=== PATIENT | female | born 1985 | race Caucasian/White ===

== ENCOUNTER 2018-12-24 15:45 | Emergency (ER) | payer OTHER ==
[~2018-12-24] VITALS: Ht 160 cm; Wt 87.6 kg
[2018-12-24] MEDS ORDERED: birth control patch TOP (16:13)
[2018-12-24 16:42] LABS: BASO % 0.4 % (0.0-1.0); EOS # 0.1 10^3/uL (0.0-0.5); EOS % 1.1 % (0.0-3.0); HEMATOCRIT 38.7 % (36.0-47.0); HEMOGLOBIN 12.9 g/dl (12.0-15.5); LYMPH # 2.3 10^3/uL (1.5-5.0); LYMPH % 31.5 % (24.0-44.0); MEAN CORPUSCULAR HEMOGLOBIN 28.3 pg (27.0-33.0); MEAN CORPUSCULAR HGB CONC 33.3 g/dl (32.0-36.5); MEAN CORPUSCULAR VOLUME 84.9 fl (80.0-96.0); MONO # 0.4 10^3/uL (0.0-0.8); MONO % 5.7 % (0.0-5.0); NEUTROPHILS # 4.4 10^3/uL (1.5-8.5); PLATELET COUNT, AUTOMATED 222 10^3/uL (150-450); RED BLOOD COUNT 4.56 10^6/uL (4.00-5.40); WHITE BLOOD COUNT 7.2 10^3/uL (4.0-10.0)
[2018-12-24 17:03] LABS: ALBUMIN 3.2 GM/DL (3.2-5.2); ALT/SGPT 42 U/L (12-78); BILIRUBIN,DIRECT 0.2 MG/DL (0.0-0.2); BILIRUBIN,TOTAL 0.3 MG/DL (0.2-1.0); BLOOD UREA NITROGEN 11 MG/DL (7-18); CARBON DIOXIDE LEVEL 24 MEQ/L (21-32); CHLORIDE LEVEL 109 MEQ/L (98-107); CREATININE FOR GFR 0.87 MG/DL (0.55-1.30); GLOMERULAR FILTRATION RATE > 60.0 (>60); GLUCOSE, FASTING 112 MG/DL (70-100); LIPASE 129 U/L (73-393); POTASSIUM SERUM 4.1 MEQ/L (3.5-5.1); SODIUM LEVEL 144 MEQ/L (136-145); TOTAL PROTEIN 6.9 GM/DL (6.4-8.2)
[2018-12-24 17:06] LABS: HCG, SERUM QUALITATIVE NEGATIVE (NEGATIVE)
[2018-12-24] MEDS ORDERED: ISOVUE-370 76% 100ML VIAL (Q9967) As Ordered ONE (17:45)
--- NOTE | 2018-12-24 18:47 | REP ---
Left rib series: Five views including PA chest. History: Left rib pain. Comparison study: May 14, 2012. Findings: PA chest radiograph is normal. There is no evidence of pneumothorax or hydrothorax. Mediastinum is not widened. Heart size is normal. Lung andujar are clear. Multiple views of the left rib cage demonstrate no evidence of rib fracture or bony destructive lesion. There are clips in the right upper quadrant of the abdomen. Impression: Negative left rib radiographs. Electronically Signed by Pillo Pereira MD 12/24/2018 06:48 P
[2018-12-24] MEDS ORDERED: KETOROLAC 30 MG/ML VIAL (J1885) IV ONE (19:15)
--- NOTE | 2018-12-24 19:20 | REPVR ---
EXAM: CT Abdomen and Pelvis With Contrast EXAM DATE/TIME: 12/24/2018 6:08 PM CLINICAL HISTORY: 33 years old, female; Abdominal pain; Localized; Left; Additional info: Luq pain extending into llq TECHNIQUE: Imaging protocol: Computed tomography of the abdomen and pelvis with intravenous contrast. Radiation optimization: All CT scans at this facility use at least one of these dose optimization techniques: automated exposure control; mA and/or kV adjustment per patient size (includes targeted exams where dose is matched to clinical indication); or iterative reconstruction. Contrast material: ISOVUE 370; Contrast volume: 100 ml; Contrast route: IV; COMPARISON: CT ABD PELVIS WITH CONTRAST 02/27/2015 1:09 AM FINDINGS: Liver: There is decreased attenuation of the liver consistent with hepatic steatosis. Gallbladder and bile ducts: There has been a cholecystectomy. Pancreas: Normal. No ductal dilation. Spleen: Small splenule is present. Adrenals: Normal. No mass. Kidneys and ureters: Punctate non-obstructive calcification in the lower pole of the right kidney. Stomach and bowel: No obstruction. Minimal proximal small bowel mucosal thickening. Appendix: The appendix is normal. Intraperitoneal space: Unremarkable. No free air. No significant fluid collection. Vasculature: Unremarkable. No abdominal aortic aneurysm. Lymph nodes: There are multiple subcentimeter clustered lymph nodes in the central mesentery and right lower quadrant. Bladder: Unremarkable as visualized. Reproductive: There is a 2.1 cm cyst of the left ovary. Bones/joints: Unremarkable. No acute fracture. Soft tissues: Small fat-containing umbilical hernia. IMPRESSION: 1. Minimal proximal small bowel thickening with scattered sub-cm mesenteric nodes, suggestive of gastroenteritis. Clinical correlation is suggested. Electronically signed by: Cielo Harris On 12/24/2018 19:20:33 PM
[2018-12-24 19:46] VITALS: BP 125/83
== END 2018-12-24 20:06 | disposition home or self-care (01) ==
LOC: M ED 15:45
DX: K52.9 Noninfective gastroenteritis and colitis, unspecified (principal); R07.81 Pleurodynia; Z87.448 Personal history of other diseases of urinary system; Z86.19 Personal history of other infectious and parasitic diseases; Z79.3 Long term (current) use of hormonal contraceptives; Z91.040 Latex allergy status
CPT/HCPCS: 36415; 71101; 74177; 80048; 80076; 81001; 83690; 84703; 85025; 87086; 96374; 99284; J1885; Q9967

== ENCOUNTER 2019-12-29 12:16 | Inpatient (IN) | payer OTHER ==
[~2019-12-29] VITALS: Ht 160 cm; Wt 95.2 kg
[~2019-12-29 12:16] MED LIST: birth control patch TOP
[2019-12-29] MEDS ORDERED: PNV1TAB6 PO (12:55)
[2019-12-29] MEDS ORDERED: B-COTAB10 PO (12:56)
[2019-12-29] MEDS ORDERED: OXYTOCIN DRIP 30 UNITS in IV 1 EA IV SCH (14:45)
[2019-12-29] MEDS ORDERED: LACTATED RINGER'S 1000 ML IV ONE (14:45)
[2019-12-29] MEDS ORDERED: LR 1,000 ML IV SCH (15:00)
[2019-12-29 15:38] LABS: HEMATOCRIT 35.8 % (36.0-47.0); HEMOGLOBIN 12.1 g/dl (12.0-15.5); MEAN CORPUSCULAR HEMOGLOBIN 28.9 pg (27.0-33.0); MEAN CORPUSCULAR HGB CONC 33.8 g/dl (32.0-36.5); MEAN CORPUSCULAR VOLUME 85.4 fl (80.0-96.0); PLATELET COUNT, AUTOMATED 210 10^3/uL (150-450); RED BLOOD COUNT 4.19 10^6/uL (4.00-5.40); WHITE BLOOD COUNT 9.2 10^3/uL (4.0-10.0)
[2019-12-30] VITALS (16 sets, daily range): BP systolic 95–126; BP diastolic 51–80
[2019-12-30] MEDS ORDERED: FENTANYL 2MCG/ML ROPIVACAINE 0.2% IN 0.9% NACL 100ML IVBAG As Ordered ONE (01:29)
[2019-12-30] MEDS ORDERED: ePHEDrine SULFATE 25 MG/5 ML(5MG/ML) SYRINGE IV PRN (03:30)
[2019-12-30] MEDS ORDERED: LACTATED RINGER'S 1000 ML IV PRN (03:30)
[2019-12-30] MEDS ORDERED: ONDANSETRON 4MG/2ML VIAL IV PRN (03:30)
[2019-12-30] MEDS ORDERED: FENTANYL/ROPIVACAINE/NACL BAG 100 ML EPIDURAL SCH (03:30)
[2019-12-30] MEDS ORDERED: EPIDURAL COMMENT XX SCH (03:30)
[2019-12-30] MEDS ORDERED: REFRIGERATOR IV KEYS XX PRN (03:30)
[2019-12-30] MEDS ORDERED: diphenhydrAMINE 50MG/ML VIAL (J1200) IV PRN (03:30)
[2019-12-30] MEDS ORDERED: EPIDURAL/PCA KEYS XX PRN (03:30)
[2019-12-30] MEDS ORDERED: NALOXONE INJ 0.4MG/1ML VIAL (J2310 PER 1MG) IV PRN (03:30)
--- NOTE | 2019-12-30 09:12 | IPNPDOC ---
Obstetrical Progress Note Date of Service Dec 30, 2019 Subjective To room for assumption of care. Patient reports no pain after epidural placed. She denied n/v/d, cp, sob, rueda, visual changes, f/c. Assessment Heart Rate (FHR): 135 Variability: Moderate Accelerations: Positive Decelerations: Early, Variable Heart Rate Tracing: Category II Tocometer Contractions: Yes Frequency: regular Sterile Vaginal Examination Dilation: 4 cm Effacement (%): 50% Station: -2 Cervical Consistency: Medium Cervical Position: Middle Postion/Presentation: Cephalic presentation (by US and exam) Assessment and Plan Status: Reassuring Additional Comments Initial exam 4/50/-2 CAT I tracing, cephalic position confirmed by US and exam, ruptured membranes, clear. Resulting in CAT II tracing for recurrent variable decelerations. Position changes attempted without resolution, IUPC placed and 200cc amnioinfusion bolus started. Variable decelerations resolved and early decelerations started. Overall reassuring tracing with moderate variability. Will continue IOL with pitocin and reassess in 4-6h or sooner if clinically indicated. ОЛЕГ VILLANUEVA DO Dec 30, 2019 09:12
[2019-12-30] MEDS ORDERED: OXYTOCIN DRIP 30 UNITS in IV 1 EA IV SCH (11:04)
--- NOTE | 2019-12-30 11:06 | IPNPDOC ---
Obstetrical Progress Note Date of Service Dec 30, 2019 Subjective Assessment of increased pressure and change in FHR category. Assessment Heart Rate (FHR): 130 Variability: Moderate Accelerations: Positive Decelerations: Early, Variable Heart Rate Tracing: Category II Tocometer Contractions: Yes Frequency: regular Sterile Vaginal Examination Dilation: 8 cm Assessment and Plan Status: Reassuring Anticipate: Vaginal Delivery Additional Comments CAT II strip from previous resolved to category I with early deceleratons. Wi thin the past 5 minutes the variable decelerations returned, a cervical exam was performed by the RN and the patient is 8cm. She is feeling more pressure. The variability is moderate and position changes are being performed to assist in resolving the variable decelerations. 100cc of the prior amnioinfusion has gone into the uterus thus far and the remaining 100cc is to gravity. Will continue to closely monitor as delivery is imminent, overall reassuring. ОЛЕГ VILLANUEVA DO Dec 30, 2019 11:06
[2019-12-30] MEDS ORDERED: ACETAMINOPHEN TAB 650MG DOSE (2X325MG) PO PRN (11:15)
[2019-12-30] MEDS ORDERED: IBUPROFEN 800 MG TAB PO PRN (11:15)
[2019-12-30] MEDS ORDERED: DIBUCAINE 1% OINTMENT 30GM TOP PRN (11:15)
[2019-12-30] MEDS ORDERED: IBUPROFEN 600MG TAB PO PRN (11:15)
[2019-12-30] MEDS ORDERED: DOCUSATE SODIUM 100 MG CAP PO PRN (11:15)
[2019-12-30 11:58] LABS: CORD GAS ABE A -7.1; CORD GAS ABE V -6.4; CORD GAS HCO3 A 21.6 MEQ/L; CORD GAS HCO3 V 18.3 MEQ/L; CORD GAS O2 SAT A 33.8 %; CORD GAS PCO2 A 54.4 mmHg; CORD GAS PCO2 V 34.8 mmHg; CORD GAS PH A 7.216 UNITS; CORD GAS PH V 7.338 UNITS; CORD GAS PO2 A 19.1 mmHg; CORD GAS PO2 V 35.3 mmHg; CORD GAS SBC A 17.2 MEQ/L; CORD GAS SBC V 18.8 MEQ/L; CORD GAS TCO2 A 23.2 MEQ/L; CORD GAS TCO2 V 19.3 MEQ/L
--- NOTE | 2019-12-30 12:03 | DNPDOC ---
[facility] Delivery Note Delivery Note DATE OF DELIVERY: 12/30/19 PREDELIVERY DIAGNOSIS: 41+1/7 weeks' gestation and labor. POST DELIVERY DIAGNOSIS: Delivered. PROCEDURE: vaginal delivery POWER BRAKE OPERATOR: Dr. Олег Villanueva DO ANESTHESIA: epidural ESTIMATED BLOOD LOSS: 150 mL. FINDINGS: 3500g , Score 8/9, nuchal cord times 1. DELIVERY SUMMARY: Patient is a 34-year-old who was admitted to labor and delivery for induction for late term. After a cook nathan ballon, pitocin, and rupture of membranes she progressed to C/C/+3 and with good maternal effort the head delivered in the MITA position and restituted to OA. A loose nuchal cord was reduced at the perineum. The corpus followed atraumatically. The baby had spontaneous movement, good tone, and cried. The cord clamping was delayed 60s and the cord was cut by the father of the baby. Cord blood and gasses were obtained. The placenta was then delivered spontaneously with michelle downward traction. The placenta had a 3 vessel cord and was examined to be in-tact. The perineum was inspected and there was a small hemostatic abraison on the left la sylvia that did not require repair. The uterus was firm and bleeding was scant. The sponge, lap, and needle counts were correct. There were no complications. ОЛЕГ VILLANUEVA DO Dec 30, 2019 12:03
--- NOTE | 2019-12-30 14:02 | HPE ---
DATE OF ADMISSION: 12/29/2019 This is a 34-year-old, 4, para 2, abortus 12, last menstrual period (LMP) 03/17/2019, estimated date of confinement (EDC) 12/22/2019 at 41 and 2 for induction of labor. RISK FACTORS: Body mass index (BMI) is 34.4. She has mitral valve prolapse, cardiac murmur, migraines. PAST HISTORY: 1. 2015, spontaneous . 2. 2016, at 39 weeks, spontaneous vaginal delivery, female, discordant growth at 6 pounds 7 ounces. 3. 2018, at 39 weeks, spontaneous vaginal delivery, male, 7 pounds 4 ounces. LABORATORIES: O positive, HIV negative, hepatitis negative, RPR negative, Rubella immune, Varicella immune, Pap normal, urine negative, gonorrhea and chlamydia are negative. 1-hour glucose early was 115, her 28-week GTT was 158, her 3-hour test fasting was 85, 1-hour 150, 2-hour 129, and 3 hours 133. She is GBS negative. On examination, no acute distress. Symphysis fundus height is 40, vertex, occiput anterior (OP), -3 station, thick, 2 cm. Category 1 strip, the occasional tightening was noted on the strip, no decelerations, moderate variability and normal baseline, accelerations were noted. Blood pressure is 116/73, respirations 18, pulse 98, temperature is 97.5. Urine is 1.020, pH 5, blood +1, ketones trace, and protein trace. The rest of the examination is unremarkable. She is normocephalic, atraumatic. Neck full range of motion. Pupils equal and reactive to light. Distal pulses are symmetric. No evidence of deep venous thrombosis (DVT), pulmonary embolus (PE), or superficial phlebitis. Chest is clear bilaterally to bases. No wheezes or rhonchi. No costovertebral angle (CVA) tenderness. This lady has had a mitral valve prolapse diagnosis at age 7. She has had a knot tier from age 7 to 21. Her cardiac murmur and mitral valve prolapse did not require intervention and she has not been placed on any prophylactic antibiotics for any procedures that were done. She denies any shortness of breath, dyspnea, or orthopnea and she has not had a cardiology appointment here. She was discharged from cardiology at age 21 and presently she is 34. Her abdomen is soft, four quadrant bowel sounds are noted. Vertex presenting. She has no rashes, lesions, or pruritus. No arthralgia, myalgia, no complaint of joint pain. No complaint of cough, wheeze, shortness of breath, or dyspnea on exertion. No bleeding. Neurologic complete. No incontinence, urgency, or frequency. No nausea, vomiting, diarrhea, or constipation. She has elevated 1-hour glucose. 3-hour GTT was normal. GYNECOLOGIC HISTORY: No sexually transmitted diseases (STDs). No abnormal pap smears. PAST MEDICAL HISTORY: Mitral valve prolapse and cardiac murmur resolved. PAST SURGICAL HISTORY: Unremarkable. FAMILY HISTORY: Noncontributory. She does not smoke, drink, abuse drugs. She is to a soldier, no domestic violence, and good support. We discussed vaginal delivery which is delivery through the vagina with possible use of forceps and vacuum if needed for maternal or indications. These are devices that can assist with vaginal delivery when normal pushing efforts cannot achieve delivery on their own or when delivery is needed in an emergency for babys well being. Medications used to augment or induce labor may be Cooks catheter, Pitocin, Cytotec. In order to augment or achieve vaginal delivery, an episiotomy may be required to deliver the baby vaginally. May also require repair of any lacerations or tears in the vagina or vulva that are caused by delivery. Emergencies arise that require emergency section, these are procedures done only for medical or indications discussed with your provider prior to continuing. The risks of vaginal delivery include but are not limited to bleeding, infection, injury to the vagina, pelvic structures, injury to baby, damage to the uterus, reaction to anesthesia, uterine rupture, risk of hysterectomy for life-threatening bleeding. Medications used to induce or augment labor may increase risk of infection, uterine tachysystole, uterine rupture, heart rate abnormalities, need for emergency section, or possible hysterectomy and for hemorrhage. Additional risks with the use of forceps or vacuum include scratches or hematomas to the head or intracranial bleed of the baby. Patient expressed understanding. 40 minute discussion with her and her partner. All questions were answered. Our plan of care is to hydrate the patient, Cooks catheter with Pitocin. Patient has requested an epidural at the appropriate interval. All questions were answered. Safe to proceed. [facility]
--- NOTE | 2019-12-30 16:44 | IPN ---
DATE: 12/30/2019 HISTORY: This lady is a 34-year-old 4, para 2, admitted for late induction of labor at 40 and 2. She had a Cooks catheter placed in utero with Pitocin up to 14 mL per minute. We removed the Cooks catheter because patient requested epidural. Examination presently at 06:00: High presenting part almost floating, 4 cm, bulging membranes, Pitocin at 14 mL per minute, category 1 strip. Patient's first delivery and labor took 26 hours and second one was more in the range of about 6 hours. PLAN: Our plan is to increase the Pitocin; hopefully the presenting part will come down in order to be amenable to rupture of membranes. Patient is comfortable, category 1 strip. Blood pressures were stable; blood pressure was 116/73, respirations 18, pulse 98, temperature 97.5. Patient expressed understanding of plan of care. ALEXY
--- NOTE | 2019-12-30 16:46 | IPN ---
DATE: 12/30/2019 HISTORY: This lady was admitted for induction of labor at 41 weeks gestation, had a Cooks catheter placed in the cervix with Pitocin up to 14 mL per minute. The Cooks catheter was removed, she was found to be 4 cm, -3 station, still a bit ballottable, but a good 4 cm, 70% effaced, no loss of fluid, no vaginal bleeding, category 1 strip. PLAN: Our plan is for her to have an epidural after which an ARM will be done and we anticipate progress, safe to proceed at the present time. ALEXY
[2019-12-30] MEDS: ACETAMINOPHEN 500 MG TAB PO PRN (18:40)
[2019-12-31] MEDS: ACETAMINOPHEN 500 MG TAB PO PRN ×2 (03:10→14:20)
[2019-12-31 06:00] VITALS: BP 116/88
--- NOTE | 2019-12-31 06:53 | IPNPDOC ---
Progress Note Date of Service: Dec 31, 2019 Day#: 1 Progress Note SUBJECT: Ms. Kauffman is a 34-year-old 4 now Para 3013 status post uncomplicated spontaneous vaginal delivery without laceration repair, doing well day # 1. She has been ambulating, voiding spontaneously without issue and tolerating regular diet. Breast feeding without issue. Reports lochia is like a normal period. Patient is ambulating well. Denies any pain. Voiding and stooling without difficulty. OBJECTIVE: VITAL SIGNS: Within normal limits, afebrile. Alert and oriented times three. Breath sounds clear to auscultation. Heart rate: Regular rate and rhythm, no murmurs, rubs or gallops. Abdomen: Fundus firm at U-2. Soft, NTTP. [Minimal] lochia. ASSESSMENT: Ms. Kauffman is a 34-year-old 4 now Para 3013 status post uncomplicated spontaneous vaginal delivery without laceration repair, doing well day # 1 Vitals within normal limits, afebrile, hemodynamically stable with no evidence of infection. PLAN: 1. Discharge to home today. 2. Tylenol and Motrin for pain. 3. Encourage breast feeding and ambulation. 4. Desires BTL for contraception, plans for abstinence in the interm, will schedule with myself for 6 weeks 5. Routine PP visit in 6 weeks in clinic. 6. Discussed return precautions at length. VS, I&O, 24H, Fishbone Vital Signs/I&O Vital Signs Date Time Temp Pulse Resp B/P (MAP) Pulse Ox O2 Delivery O2 Flow Rate FiO2 12/31/19 06:00 96.1 60 20 116/88 (97) 99 Room Air I&O- Last 24 Hours up to 6 AM 12/31/19 06:00 Intake Total 3750 ml Output Total 1750 ml Balance 2000 ml Laboratory Data 24H LABS Laboratory Tests 2 12/30/19 11:46: Cord Arterial Blood pH 7.216, Cord Arterial Blood PCO2 54.4, Cord Arterial Blood PO2 19.1, Cord Arterial Blood HCO3 21.6, Cord Arterial Blood Total CO2 23.2, Cord Arterial Blood Base Excess -7.1, Cord Arterial Base Excess (Standard 17.2, Cord Arterial Bld Oxygen Saturation 33.8, Cord Venous Blood pH 7.338, Cord Venous Blood PCO2 34.8, Cord Venous Blood PO2 35.3, Cord Venous Blood HCO3 18.3, Cord Venous Blood Total CO2 19.3, Cord Venous Base Excess (Actual) -6.4, Cord Venous Base Excess (Standard) 18.8, Cord Venous Blood Oxygen Saturation 75.0 ОЛЕГ VILLANUEVA DO Dec 31, 2019 06:53
[2019-12-31] MEDS ORDERED: PRENATAL VITAMINS CHEWABLE TABLET PO SCH (09:00)
== END 2019-12-31 17:45 | disposition home or self-care (01) | DRG 807 ==
LOC: M LDI 12:16 → M OBS 12-30 14:35
PROVIDERS: ADMIT Obstetrics & Gynecology; ATTEND Obstetrics & Gynecology
PROC: 3E033VJ Introduction of Other Hormone into Peripheral Vein, Percutaneous Approach (ICD-10-PCS; 2019-12-29)
PROC: 10E0XZZ Delivery of Products of Conception, External Approach (ICD-10-PCS; principal; 2019-12-30)
DX: O48.0 Post-term pregnancy (principal); Z37.0 Single live birth; Z3A.41 41 weeks gestation of pregnancy; O69.81X0 Labor and delivery complicated by cord around neck, without compression, not applicable or unspecified; O99.214 Obesity complicating childbirth; E66.9 Obesity, unspecified

== ENCOUNTER 2020-03-24 07:17 | Day surgery (SDC) | payer OTHER ==
[~2020-03-24] VITALS: Ht 160 cm; Wt 91.2 kg
[~2020-03-24 07:17] MED LIST changes: +B-COTAB10 PO; +LIDOCAINE 1% MDV 20ML VIAL SQ PRN; +LIDOCAINE 2% 100MG/5ML SDV (FOR ANES.) As Ordered ONE; +LR 1,000 ML IV ONE; +MAPA500C PO; +MIDAZOLAM INJ 2MG/2ML VIAL (J2250 PER 1MG) As Ordered ONE; +PNV1TAB6 PO; +ROCURONIUM BROMIDE 50 MG/5 ML VIAL As Ordered ONE; +dexameTHASONE 4 MG/ML 1ML VIAL (J1100 PER 1MG) As Ordered ONE; +fentaNYL 100 MCG/2 ML INJECTION (J3010) As Ordered ONE; +propofoL 200 MG/20 ML VIAL As Ordered ONE
[2020-03-24 08:09] LABS: HEMATOCRIT 40.3 % (36.0-47.0); MEAN CORPUSCULAR HGB CONC 32.3 g/dl (32.0-36.5); MEAN CORPUSCULAR VOLUME 86.9 fl (80.0-96.0); PLATELET COUNT, AUTOMATED 240 10^3/uL (150-450); RED BLOOD COUNT 4.64 10^6/uL (4.00-5.40); WHITE BLOOD COUNT 8.5 10^3/uL (4.0-10.0)
[2020-03-24 08:31] LABS: HCG, SERUM QUALITATIVE NEGATIVE (NEGATIVE)
[2020-03-24] MEDS ORDERED: BUPIVACAINE HCL 0.5% 30 ML VIAL As Ordered ONE (08:49)
[2020-03-24] MEDS ORDERED: METOCLOPRAMIDE INJ 10MG/2ML VIAL (J2765 PER 1) As Ordered ONE (09:15)
[2020-03-24] MEDS ORDERED: ACETAMINOPHEN 1000MG 100ML IV BTL (OFIRMEV) (J0131 PER 10MG) As Ordered ONE (09:26)
[2020-03-24] MEDS ORDERED: KETOROLAC 60MG 2ML VIAL As Ordered ONE (09:28)
[2020-03-24] MEDS ORDERED: SUGAMMADEX SODIUM 500 MG/5 ML VIAL (BRIDION) As Ordered ONE (09:28)
[2020-03-24] MEDS ORDERED: SILVER NITRATE APPLICATOR As Ordered ONE (09:55)
[2020-03-24] MEDS ORDERED: oxyCODONE 5MG TAB PO PRN (10:45)
[2020-03-24] MEDS ORDERED: METOCLOPRAMIDE INJ 10MG/2ML VIAL (J2765 PER 1) IV PRN (10:45)
[2020-03-24] MEDS ORDERED: fentaNYL 100 MCG/2 ML INJECTION (J3010) IV PRN (10:45)
[2020-03-24] MEDS ORDERED: LR 1,000 ML IV SCH (10:45)
[2020-03-24] MEDS ORDERED: ONDANSETRON 4MG/2ML VIAL IV PRN (10:45)
[2020-03-24] MEDS ORDERED: HYDROMORPHONE HCL 0.5 MG/ 0.5 ML SYRINGE (J1170 PER 1) IV PRN (10:45)
[2020-03-24] MEDS ORDERED: PERCOCET 5MG/325MG TAB PO PRN (10:45)
[2020-03-24] MEDS ORDERED: KETOROLAC 30 MG/ML 1ML VIAL IV ONE (10:45)
--- NOTE | 2020-03-24 11:58 | RO ---
OPERATIVE NOTE DATE OF OPERATION: 03/23/2020 PREOPERATIVE DIAGNOSIS: Satisfied parity. POSTOPERATIVE DIAGNOSIS: Satisfied parity. PROCEDURE: Laparoscopic bilateral salpingectomy. SURGEON: Zacarias Frias DO CAP INSPECTOR: Kyra Castrejon DO IV FLUIDS: 600 mL LR. ESTIMATED BLOOD LOSS: 2 mL URINE OUTPUT: 25 mL ANTIBIOTICS: None indicated. OPERATIVE FINDINGS: Normal appearing uterus, normal appearing bilateral fallopian tubes, simple left appearing ovarian cyst, ovaries otherwise normal in appearance. COMPLICATIONS: None. DETAILED PROCEDURE DESCRIPTION: The risks, benefits, indications and alternatives of the procedure were reviewed with the patient and informed consent was obtained. The patient was taken to the operating room and general anesthesia was obtained without difficulty. The patient was then placed in the lithotomy position using gel-padded Eduardo stirrups. The patient's arms were gently tucked to the sides with padding. The patient was then prepped and draped in the usual sterile fashion. A surgical time-out was then performed and the patient's identity and planned procedure were verified with the operative team. A Callejas catheter was placed to drain the bladder. A single-tooth tenaculum was then used to grasp the anterior lip of the cervix. An acorn uterine manipulator was then placed as a means to manipulate the uterus. Gloves were then exchanged and attention was then turned to the patient's abdomen where a 5 mm skin incision was made in the inferior aspect of the umbilicus after injection of Marcaine. A 5 mm trocar and sleeve were then carefully introduced into the peritoneal cavity under direct visualization at a 90 degree angle while tenting up the abdominal wall. Intraperitoneal placement was confirmed under direct visualization and entry pressure was noted to be less than 5 mmHg. A pneumoperitoneum was obtained with several liters of CO2 gas. Upon entry into the peritoneal cavity, structures immediately below the incision were inspected and found to be free of injury. A survey of the patient's abdomen and pelvis was notable for the above findings. The posterior cul-de-sac was inspected and was also normal. Two additional 5 mm trocars, one in the left lower quadrant and one in the right lower quadrant were then inserted under direct visualization after local anesthetic was injected and a skin incision was made with a scalpel. Using the LigaSure electrocautery device, the left fallopian tube was dissected away from the mesosalpinx from the fimbriated end to the isthmic portion, taking care to cauterize any vasculature within the mesosalpinx. The fallopian tube was then amputated at its connection to the uterine cornua and removed from the patient's abdomen. Attention was then turned to the patient's right fallopian tube, which was removed in a similar fashion. The operative sites were inspected and found to be hemostatic. The gas was then turned off and all CO2 was removed from the patient's abdomen. The patient was given three manual breaths to assist with desufflation of the abdomen. All remaining ports were then removed under direct visualization and there was no bleeding seen from the trocar sites. All the skin incisions were then closed with 4-0 Monocryl suture and then covered with Dermabond. The uterine manipulator was then removed and the patient's Callejas catheter was then removed. The cervix was made hemostatic with sticks of silver nitrate. All instruments were then confirmed to have been removed from the vagina. At the completion of the case, the sponge, instrument and needle counts were correct x2. The patient tolerated the procedure well. She was cleansed and dried, taken out of lithotomy position, awakened from anesthesia and taken to the PACU in stable condition. ALEXY
[2020-03-24 12:15] VITALS: BP 118/79
== END 2020-03-24 12:15 | disposition home or self-care (01) ==
LOC: M SDC 07:17
PROVIDERS: ATTEND Obstetrics & Gynecology
DX: Z30.2 Encounter for sterilization (principal); G43.909 Migraine, unspecified, not intractable, without status migrainosus
CPT/HCPCS: 36415; 58661; 81025; 84703; 85027; 88302; J0131; J1100; J1885; J2250; J2765; J3010

== ENCOUNTER 2020-11-16 21:19 | Emergency (ER) | payer OTHER ==
[~2020-11-16] VITALS: Ht 157.5 cm; Wt 93.6 kg
[~2020-11-16 21:19] MED LIST changes: -LIDOCAINE 1% MDV 20ML VIAL SQ PRN; -LIDOCAINE 2% 100MG/5ML SDV (FOR ANES.) As Ordered ONE; -LR 1,000 ML IV ONE; -MIDAZOLAM INJ 2MG/2ML VIAL (J2250 PER 1MG) As Ordered ONE; -ROCURONIUM BROMIDE 50 MG/5 ML VIAL As Ordered ONE; -dexameTHASONE 4 MG/ML 1ML VIAL (J1100 PER 1MG) As Ordered ONE; -fentaNYL 100 MCG/2 ML INJECTION (J3010) As Ordered ONE; -propofoL 200 MG/20 ML VIAL As Ordered ONE
[2020-11-16] MEDS ORDERED: SUMA50TA2 PO (21:27)
[2020-11-16] MEDS ORDERED: BOTO10VL IM (21:27)
--- NOTE | 2020-11-17 01:33 | REPVR ---
PROCEDURE INFORMATION: Exam: XR Left Shoulder Exam date and time: 11/16/2020 12:20 AM Age: 34 years old Clinical indication: Pain; Shoulder; Left; Additional info: Fell falling on shoulder TECHNIQUE: Imaging protocol: XR Left shoulder. Views: 2 or more views. COMPARISON: CR Ribs uni W-PA CHEST ONLY 12/24/2018 5:54 PM FINDINGS: Bones/joints: Normal. No fracture or dislocation. Soft tissues: Normal. IMPRESSION: Negative left shoulder. Electronically signed by: Timothy Banuelos On 11/17/2020 01:33:00 AM
[2020-11-17 05:02] VITALS: BP 141/100
[2020-11-17] MEDS ORDERED: CYCL-707 PO (06:24)
== END 2020-11-17 07:06 | disposition home or self-care (01) ==
LOC: M ED 21:19
DX: S49.92XA Unspecified injury of left shoulder and upper arm, initial encounter (principal); M54.2 Cervicalgia; W01.198A Fall on same level from slipping, tripping and stumbling with subsequent striking against other object, initial encounter; Y92.9 Unspecified place or not applicable; Y93.89 Activity, other specified; Y99.9 Unspecified external cause status; E66.9 Obesity, unspecified; Z91.040 Latex allergy status

== ENCOUNTER 2021-07-20 10:55 | Day surgery (SDC) | payer OTHER ==
[~2021-07-20] VITALS: Ht 160 cm; Wt 93.8 kg
[~2021-07-20 10:55] MED LIST changes: +ACETAMINOPHEN 500 MG TAB PO ONE; +BOTO10VL IM; +CYCL-707 PO; +CelecoXIB 400 MG CAP PO ONE; +GABAPENTIN 300 MG CAP PO ONE; +IBUP200C28 PO; +LIDOCAINE 1% MDV 20ML VIAL SQ PRN; +LR 1,000 ML IV ONE; +ONDANSETRON 4MG/2ML VIAL IV ONE; +SUMA50TA2 PO; +ceFAZolin SOD 2 GM in IV 1 EA IV ONE
[2021-07-20] MEDS ORDERED: EPINEPHrine 1MG/ML INJ 30ML MD-VIAL As Ordered ONE (14:39)
[2021-07-20] MEDS ORDERED: BUPIVACAINE HCL 0.5% 30ML VIAL As Ordered ONE (14:39)
[2021-07-20] MEDS ORDERED: LIDOCAINE 2% 100MG/5ML SDV (FOR ANES.) As Ordered ONE (15:24)
[2021-07-20] MEDS ORDERED: propofoL 200 MG/20 ML VIAL As Ordered ONE (15:24)
[2021-07-20] MEDS ORDERED: fentaNYL 100 MCG/2 ML INJECTION As Ordered ONE (15:24)
[2021-07-20] MEDS ORDERED: dexameTHASONE 4 MG/ML 1ML VIAL (J1100 PER 1MG) As Ordered ONE (15:24)
[2021-07-20] MEDS ORDERED: MIDAZOLAM INJ 2MG/2ML VIAL (J2250 PER 1MG) As Ordered ONE (15:24)
[2021-07-20] MEDS ORDERED: ONDANSETRON 4MG/2ML VIAL As Ordered ONE (15:24)
[2021-07-20] MEDS ORDERED: LR 1,000 ML IV SCH ×2 (16:30)
[2021-07-20] MEDS ORDERED: oxyCODONE 5MG TAB PO PRN (16:30)
[2021-07-20] MEDS ORDERED: fentaNYL 100 MCG/2 ML INJECTION IV PRN (16:30)
[2021-07-20] MEDS ORDERED: ONDANSETRON 4MG/2ML VIAL IV PRN (16:30)
[2021-07-20 17:15] VITALS: BP 129/72
== END 2021-07-20 17:21 | disposition home or self-care (01) ==
LOC: M SDC 10:55
PROVIDERS: ATTEND Orthopaedic Surgery Adult Reconstructive Orthopaedic Surgery
DX: M94.262 Chondromalacia, left knee (principal); M23.204 Derangement of unspecified medial meniscus due to old tear or injury, left knee; Z91.040 Latex allergy status
CPT/HCPCS: 29876; J0171; J1100; J2250; J2405; J3010

== ENCOUNTER → 2021-12-23 | Outpatient (CLI) | payer OTHER ==
[~2021-12-23] MED LIST changes: -ACETAMINOPHEN 500 MG TAB PO ONE; -CelecoXIB 400 MG CAP PO ONE; -GABAPENTIN 300 MG CAP PO ONE; -LIDOCAINE 1% MDV 20ML VIAL SQ PRN; -LR 1,000 ML IV ONE; -ONDANSETRON 4MG/2ML VIAL IV ONE; -ceFAZolin SOD 2 GM in IV 1 EA IV ONE
== END ==
LOC: M SOG 08:35
PROVIDERS: ATTEND Orthopaedic Surgery
DX: M25.512 Pain in left shoulder (principal)

== ENCOUNTER → 2021-12-23 | Outpatient (CLI) | payer OTHER | LOC: M SOG 15:21 | PROVIDERS: ATTEND Orthopaedic Surgery | DX: M25.512 Pain in left shoulder (principal); Z53.9 Procedure and treatment not carried out, unspecified reason ==